=== PATIENT | male | born 1960 | race Asian ===

== ENCOUNTER 2016-10-22 21:27 | Observation (INO) | payer OTHER ==
[~2016-10-22] VITALS: Ht 167.6 cm; Wt 75.0 kg
[2016-10-22 21:39] VITALS: BP 113/73; PULSE 75; RESP 18; TEMP 98; O2SAT 95
[2016-10-22] MEDS ORDERED: MULT1TAB46 (21:39)
[2016-10-22] MEDS ORDERED: SACC1CAP3 PO (21:39)
[2016-10-22] MEDS ORDERED: CALC1TAB12 PO (21:39)
[2016-10-22] MEDS ORDERED: SODIUM CHLOR 0.9% 1000 ML INJ 1,000 ML IV ONE (22:06)
--- NOTE | 2016-10-22 22:08 | PD ---
HPI Chief Complaint: Syncope/Near-Syncope Time Seen by Provider: 22:05 Travel History International Travel<30 days: No Contact w/Intl Traveler<30days: No Traveled to known affect area: No History of Present Illness HPI 56-year-old male with no significant medical history presents to the emergency department for evaluation following a syncopal episode. Patient states that he was at a friend's house this evening and ready to leave. He was walking to leave when he began to feel tired. He states he then "passed out." He got up and passed out again. He struck his head at that time on the cabinet. At this time, patient reports left-sided head pain where he struck his head. No nausea or vomiting. No other focal deficits weakness. Patient states this did happen one time 12 years ago. He spent time in the hospital and they did not find out why it happened. Approximately 8 years ago, patient states that he developed a mild right sided facial paralysis that never completely resolved. Currently he feels tired. Denies chest pain or tightness. PFSH Past Medical History Medical History: Denies Significant Hx Diminished Hearing: No Tetanus Vaccination: Unknown Influenza Vaccination: No Social History Alcohol Use: Yes (MONTHLY) Tobacco Use: No Substance Use: No Allergies-Medications (Allergen,Severity, Reaction): Coded Allergies: nut - unspecified (Verified Allergy, Unknown, 10/22/16) Reported Meds & Prescriptions Reported Meds & Active Scripts Active Reported Probiotic (Saccharomyces Boulardii) 250 Mg Cap 250 Mg PO BID Calcium 500 +D (Calcium Carbonate-Cholecalciferol) 500-400 Mg-Unit Tab 1 Tab PO BID Multi Vitamin Daily (Multiple Vitamin) 1 Tab Tab Review of Systems Except as stated in HPI: all other systems reviewed are Neg Physical Exam Narrative GENERAL: Well-nourished male patient, in no acute distress SKIN: Focused skin assessment warm/dry. HEAD: Atraumatic. Normocephalic. EYES: Pupils equal and round. No scleral icterus. No injection or drainage. EOMI. PERRLA ENT: No nasal bleeding or discharge. Mucous membranes pink and moist. NECK: Trachea midline. No JVD. CARDIOVASCULAR: Regular rate and rhythm. No murmur appreciated. RESPIRATORY: No accessory muscle use. Clear to auscultation. Breath sounds equal bilaterally. GASTROINTESTINAL: Abdomen soft, non-tender, nondistended. Hepatic and splenic margins not palpable. MUSCULOSKELETAL: No obvious deformities. No clubbing. No cyanosis. No edema. NEUROLOGICAL: Awake and alert. No obvious cranial nerve deficits except for inability to puff cheeks on the right and very mild facial weakness on the right. This is chronic.. Motor grossly within normal limits. Normal speech. PSYCHIATRIC: Appropriate mood and affect; insight and judgment normal. Data Data Last Documented VS Vital Signs Date Time Temp Pulse Resp B/P (MAP) Pulse Ox O2 Delivery O2 Flow Rate FiO2 10/22/16 22:51 72 19 105/68 (80) 75 19 106/71 (83) 86 20 122/79 (93) 10/22/16 21:41 Room Air 10/22/16 21:39 98.0 95 Orders Orders Complete Blood Count With Diff (10/22/16 21:54) Comprehensive Metabolic Panel (10/22/16 21:54) Iv Access Insert/Monitor (10/22/16 21:54) Electrocardiogram (10/22/16 22:06) Magnesium (Mg) (10/22/16 22:06) Ckmb (Isoenzyme) Profile (10/22/16 22:06) Troponin I (10/22/16 22:06) Act Partial Throm Time (Ptt) (10/22/16 22:06) Prothrombin Time / Inr (Pt) (10/22/16 22:06) Urinalysis - C+S If Indicated (10/22/16 22:06) Chest, Single Ap (10/22/16 22:06) Ct Brain W/O Iv Contrast(Rout) (10/22/16 22:06) Ct Cerv Spine W/O Contrast (10/22/16 22:06) Ecg Monitoring (10/22/16 22:06) Oximetry (10/22/16 22:06) Sodium Chloride 0.9% Flush (Ns Flush) (10/22/16 22:15) Sodium Chlor 0.9% 1000 Ml Inj (Ns 1000 M (10/22/16 22:06) CKMB (10/22/16 21:50) CKMB% (10/22/16 21:50) Admit Order (Ed Use Only) (10/22/16 23:08) Labs Laboratory Tests Test 10/22/16 21:50 10/22/16 23:02 White Blood Count 11.3 TH/MM3 Red Blood Count 4.74 MIL/MM3 Hemoglobin 14.5 GM/DL Hematocrit 43.1 % Mean Corpuscular Volume 90.9 FL Mean Corpuscular Hemoglobin 30.5 PG Mean Corpuscular Hemoglobin Concent 33.5 % Red Cell Distribution Width 13.5 % Platelet Count 362 TH/MM3 Mean Platelet Volume 8.1 FL Neutrophils (%) (Auto) 63.5 % Lymphocytes (%) (Auto) 26.7 % Monocytes (%) (Auto) 7.5 % Eosinophils (%) (Auto) 1.7 % Basophils (%) (Auto) 0.6 % Neutrophils # (Auto) 7.1 TH/MM3 Lymphocytes # (Auto) 3.0 TH/MM3 Monocytes # (Auto) 0.8 TH/MM3 Eosinophils # (Auto) 0.2 TH/MM3 Basophils # (Auto) 0.1 TH/MM3 CBC Comment DIFF FINAL Differential Comment Prothrombin Time 9.9 SEC Prothromb Time International Ratio 0.9 RATIO Activated Partial Thromboplast Time 22.4 SEC Blood Urea Nitrogen 19 MG/DL Creatinine 1.14 MG/DL Random Glucose 101 MG/DL Total Protein 7.7 GM/DL Albumin 3.7 GM/DL Calcium Level 8.8 MG/DL Alkaline Phosphatase 63 U/L Aspartate Amino Transf (AST/SGOT) 34 U/L Alanine Aminotransferase (ALT/SGPT) 29 U/L Total Bilirubin 0.3 MG/DL Sodium Level 141 MEQ/L Potassium Level 3.8 MEQ/L Chloride Level 104 MEQ/L Carbon Dioxide Level 26.3 MEQ/L Anion Gap 11 MEQ/L Estimat Glomerular Filtration Rate 67 ML/MIN Magnesium Level 2.4 MG/DL Total Creatine Kinase 197 U/L Creatine Kinase MB 1.2 NG/ML Troponin I LESS THAN 0.02 NG/ML Urine Color YELLOW Urine Turbidity CLEAR Urine pH 5.5 Urine Specific [place] 1.022 Urine Protein TRACE mg/dL Urine Glucose (UA) NEG mg/dL Urine Ketones NEG mg/dL Urine Occult Blood NEG Urine Nitrite NEG Urine Bilirubin NEG Urine Urobilinogen LESS THAN 2.0 MG/DL Urine Leukocyte Esterase NEG Urine RBC LESS THAN 1 /hpf Urine WBC 2 /hpf Urine Hyaline Casts 5 /lpf Urine Mucus FEW /lpf Microscopic Urinalysis Comment CULT NOT INDICATED MDM Medical Decision Making Medical Screen Exam Complete: Yes Emergency Medical Condition: Yes Medical Record Reviewed: Yes Differential Diagnosis Syncope versus near-syncope versus arrhythmia versus electrolyte abnormality versus dehydration versus TIA versus CVA versus intracranial hemorrhage Narrative Course 56-year-old male presents to emergency department for evaluation following a syncopal episode. Patient appears without distress. His vital signs are stable. EKG is normal sinus rhythm without acute ST elevation or depression. CT of the brain and cervical spine are ordered. Syncopal workup is initiated. Laboratory Tests Test 10/22/16 21:50 10/22/16 23:02 Prothrombin Time 9.9 SEC Prothromb Time International Ratio 0.9 RATIO Activated Partial Thromboplast Time 22.4 SEC Magnesium Level 2.4 MG/DL Blood Urea Nitrogen 19 MG/DL Creatinine 1.14 MG/DL Random Glucose 101 MG/DL Total Protein 7.7 GM/DL Albumin 3.7 GM/DL Calcium Level 8.8 MG/DL Alkaline Phosphatase 63 U/L Aspartate Amino Transf (AST/SGOT) 34 U/L Alanine Aminotransferase (ALT/SGPT) 29 U/L Total Bilirubin 0.3 MG/DL Sodium Level 141 MEQ/L Potassium Level 3.8 MEQ/L Chloride Level 104 MEQ/L Carbon Dioxide Level 26.3 MEQ/L Creatine Kinase MB 1.2 NG/ML Urine Color YELLOW Urine Turbidity CLEAR Urine pH 5.5 Urine Specific [place] 1.022 Urine Protein TRACE mg/dL Urine Glucose (UA) NEG mg/dL Urine Ketones NEG mg/dL Urine Occult Blood NEG Urine Nitrite NEG Urine Bilirubin NEG Urine Urobilinogen LESS THAN 2.0 MG/DL Urine Leukocyte Esterase NEG Urine RBC LESS THAN 1 /hpf Urine WBC 2 /hpf Urine Hyaline Casts 5 /lpf Urine Mucus FEW /lpf Microscopic Urinalysis Comment CULT NOT INDICATED Last Impressions Head CT 10/22/162205 Signed Impressions: Service Date/Time: Saturday, October 22, 2016 22:20 - CONCLUSION: No acute intracranial abnormality is identified. Raul Martinez MD Chest X-Ray 10/22/162205 Signed Impressions: Service Date/Time: Saturday, October 22, 2016 22:24 - CONCLUSION: No acute disease. Angel Hathaway MD Cervical Spine CT 10/22/162205 Signed Impressions: Service Date/Time: Saturday, October 22, 2016 22:20 - CONCLUSION: No acute cervical spine abnormality is identified. There is degenerative disc disease at C4-C5 through C6-C7. Raul Martinez MD I have discussed the patient with my attending physician; pt will be admitted obs for syncope workup Diagnosis Primary Impression: Syncope Qualified Codes: R55 - Syncope and collapse Additional Impression: Minor head injury Qualified Codes: S00.90XA - Unspecified superficial injury of unspecified part of head, initial encounter Admitting Information Admitting Physician Requests: Observation Condition: Stable Michelle Corona Oct 22, 2016 22:08
[2016-10-22] MEDS ORDERED: SODIUM CHLORIDE 0.9% FLUSH 10 ML FLUSH IVF PRN (22:15)
[2016-10-22 22:32] LABS: AUTOMATED NEUTROPHIL # 7.1 TH/MM3 (1.8-7.7); BASOPHIL # 0.1 TH/MM3 (0-0.2); BASOPHIL % 0.6 % (0.0-2.0); EOSINOPHIL # 0.2 TH/MM3 (0-0.4); EOSINOPHIL % 1.7 % (0.0-4.0); HEMATOCRIT 43.1 % (39.0-51.0); HEMO FLAGS DIFF FINAL; LYMPH % 26.7 % (9.0-44.0); MEAN CELL VOLUME 90.9 FL (80.0-100.0); MEAN CORPUSCULAR HEMOGLOBIN 30.5 PG (27.0-34.0); MEAN CORPUSCULAR HGB CONC 33.5 % (32.0-36.0); MONO % 7.5 % (0.0-8.0); NEUT % 63.5 % (16.0-70.0); PLATELET COUNT 362 TH/MM3 (150-450); RED BLOOD COUNT 4.74 MIL/MM3 (4.50-5.90); RED CELL DISTRIBUTION WIDTH 13.5 % (11.6-17.2); WHITE BLOOD COUNT 11.3 TH/MM3 (4.0-11.0)
--- NOTE | 2016-10-22 22:48 | RADRPT ---
EXAM DATE/TIME: 10/22/2016 22:24 [facility] COMPARISON: No previous studies available for comparison. INDICATIONS : Chest pain. MEDICAL HISTORY : None. SURGICAL HISTORY : None. ENCOUNTER: Initial ACUITY: 1 day PAIN SCORE: 0/10 LOCATION: Bilateral chest FINDINGS: A single view of the chest demonstrates the lungs to be symmetrically aerated without evidence of mas s, infiltrate or effusion. The cardiomediastinal contours are unremarkable. Osseous structures are intact. CONCLUSION: No acute disease. Angel Hathaway MD on October 22, 2016 at 22:45 Board Certified Radiologist. This report was verified electronically.
[2016-10-22 22:51] VITALS: BP_SYST 105; BP_SYST 106; BP_SYST 122; BP_DIAS 68; BP_DIAS 71; BP_DIAS 79; RESP 19; RESP 20
[2016-10-22 22:53] LABS: APTT (PATIENT) 22.4 SEC (24.3-30.1); INTERNATIONAL NORMALIZED RATIO 0.9 RATIO; PROTHROMBIN TIME - PATIENT 9.9 SEC (9.8-11.6)
[2016-10-22 22:54] LABS: ALKALINE PHOSPHATASE 63 U/L (45-117); GLOMERULAR FILTRATION RATE 67 ML/MIN (>89); TOTAL BILIRUBIN ADULT 0.3 MG/DL (0.2-1.0)
--- NOTE | 2016-10-22 22:54 | RADRPT ---
EXAM DATE/TIME: 10/22/2016 22:20 [facility] COMPARISON: No previous studies available for comparison. INDICATIONS : Dizziness, fell hit left side of head. RADIATION DOSE: 32.66 CTDIvol (mGy) MEDICAL HISTORY : None SURGICAL HISTORY : None. ENCOUNTER: Initial ACUITY: 1 day PAIN SCALE: 0/10 LOCATION: Left cranial TECHNIQUE: Multiple contiguous axial images were obtained of the head. Using automated exposure control and adj ustment of the mA and/or kV according to patient size, radiation dose was kept as low as reasonably a chievable to obtain optimal diagnostic quality images. DICOM format image data is available electro nically for review and comparison. FINDINGS: CEREBRUM: The ventricles are normal. No evidence of midline shift, mass lesion, hemorrhage or acute infarction. No extra-axial fluid collections are seen. POSTERIOR FOSSA: The cerebellum and brainstem are intact. The 4th ventricle is midline. The cerebellopontine angle i s unremarkable. EXTRACRANIAL: There is a small mucous retention cyst in the right maxillary sinus. SKULL: The calvaria is intact. No evidence of skull fracture. CONCLUSION: No acute intracranial abnormality is identified. Raul Martinez MD on October 22, 2016 at 22:51 Board Certified Radiologist. This report was verified electronically.
[2016-10-22 23:01] LABS: ALT (GPT) 29 U/L (12-78); ANION GAP 11 MEQ/L (5-15); AST (GOT) 34 U/L (15-37); BICARBONATE 26.3 MEQ/L (21.0-32.0); BLOOD UREA NITROGEN 19 MG/DL (7-18); CHLORIDE 104 MEQ/L (98-107); SODIUM (NA) 141 MEQ/L (136-145)
[2016-10-22 23:02] LABS: POTASSIUM 3.8 MEQ/L (3.5-5.1)
--- NOTE | 2016-10-22 23:02 | RADRPT ---
EXAM DATE/TIME: 10/22/2016 22:20 [facility] COMPARISON: No previous studies available for comparison. INDICATIONS : Dizziness, fell hit left side of head. RADIATION DOSE: 32.66 CTDIvol (mGy) MEDICAL HISTORY : None SURGICAL HISTORY : None. ENCOUNTER: Initial ACUITY: 1 day PAIN SCALE: 5/10 LOCATION: neck TECHNIQUE: Volumetric scanning of the cervical spine was performed. Multiplanar reconstructions in the sagittal, coronal and oblique axial planes were performed. Using automated exposure control and adjustment o f the mA and/or kV according to patient size, radiation dose was kept as low as reasonably achievable to obtain optimal diagnostic quality images. DICOM format image data is available electronically f or review and comparison. FINDINGS: There is normal sagittal spine alignment of the cervical spine. No anterolisthesis or retrolisthesis is present. The atlantoaxial relationship is within normal limits. There is no prevertebral soft tiss ue swelling present. No fracture or dislocation is identified. There is degenerative disc disease at C4-C5 through C6-C7. The visualized portions of the posterior fossa, paraspinous soft tissues, and upper lung zones demons trate no acute abnormality. CONCLUSION: No acute cervical spine abnormality is identified. There is degenerative disc disease at C4-C5 throug h C6-C7. Raul Martinez MD on October 22, 2016 at 22:58 Board Certified Radiologist. This report was verified electronically.
[2016-10-22 23:05] LABS: CREATINE KINASE 197 U/L (39-308)
[2016-10-22 23:06] LABS: MAGNESIUM 2.4 MG/DL (1.5-2.5)
[2016-10-22 23:18] LABS: CKMB 1.2 NG/ML (0.5-3.6)
[2016-10-22 23:23] LABS: BLOOD, URINE NEG (NEG); COMMENT (UR) CULT NOT INDICATED; CULTURE IF INDICATED CULT NOT INDICATED; GLUCOSE,URINE NEG (NEG); HYALINE CAST, URINE 5 /lpf (RARE); KETONE, URINE NEG (NEG); MUCUS URINE FEW /lpf (OCC); NITRITE,URINE NEG (NEG); PH, URINE 5.5 (5.0-8.5); URINE COLOR YELLOW (YELLW/STRAW)
[2016-10-22 23:45] VITALS: BP 106/72; PULSE 78; RESP 18; O2SAT 98
[2016-10-23] MEDS ORDERED: NALOXONE HCL 0.4 MG/ML AMP IV PRN
[2016-10-23] MEDS ORDERED: SODIUM CHLORIDE 0.9% FLUSH 10 ML FLUSH IV FLUSH PRN
[2016-10-23 01:56] VITALS: BP 98/62; PULSE 70; RESP 14; TEMP 97.9; O2SAT 96
[2016-10-23 03:51] VITALS: PULSE 67
[2016-10-23 04:00] VITALS: PULSE 68
[2016-10-23 05:10] LABS: BASOPHIL % 0.5 % (0.0-2.0); EOSINOPHIL # 0.1 TH/MM3 (0-0.4); EOSINOPHIL % 0.9 % (0.0-4.0); HEMO FLAGS DIFF FINAL; LYMPHOCYTE # 1.8 TH/MM3 (1.0-4.8); MEAN CELL VOLUME 92.7 FL (80.0-100.0); MEAN CORPUSCULAR HEMOGLOBIN 31.3 PG (27.0-34.0); MEAN CORPUSCULAR HGB CONC 33.8 % (32.0-36.0); MONO % 6.1 % (0.0-8.0); NEUT % 75.5 % (16.0-70.0); PLATELET COUNT 314 TH/MM3 (150-450); RED BLOOD COUNT 4.53 MIL/MM3 (4.50-5.90); RED CELL DISTRIBUTION WIDTH 13.7 % (11.6-17.2); WHITE BLOOD COUNT 10.6 TH/MM3 (4.0-11.0)
[2016-10-23 05:29] VITALS: BP 98/65; PULSE 67; RESP 16; TEMP 97.5; O2SAT 98
[2016-10-23 05:31] LABS: ANION GAP 7 MEQ/L (5-15); BLOOD UREA NITROGEN 16 MG/DL (7-18); CHLORIDE 109 MEQ/L (98-107); GLOMERULAR FILTRATION RATE 83 ML/MIN (>89); POTASSIUM 3.9 MEQ/L (3.5-5.1); SODIUM (NA) 139 MEQ/L (136-145)
[2016-10-23 05:35] LABS: CREATINE KINASE 134 U/L (39-308)
[2016-10-23 07:40] VITALS: BP 105/66; PULSE 71; RESP 18; TEMP 97.5; O2SAT 98
[2016-10-23] MEDS ORDERED: SODIUM CHLORIDE 0.9% FLUSH 10 ML FLUSH IV FLUSH SCH (09:00)
[2016-10-23 11:14] VITALS: BP 108/71; PULSE 69; RESP 18; TEMP 97.7; O2SAT 96
[2016-10-23 12:11] LABS: CREATINE KINASE 122 U/L (39-308)
--- NOTE | 2016-10-23 12:15 | RADRPT ---
EXAM DATE/TIME: 10/23/2016 09:50 [facility] COMPARISON: No previous studies available for comparison. INDICATIONS : Syncope. MEDICAL HISTORY : Syncope. SURGICAL HISTORY : Back surgery. ENCOUNTER: Initial ACUITY: 1 day PAIN SCORE: 0/10 LOCATION: Bilateral neck PEAK SYSTOLIC VELOCITIES (cm/sec): ICA/CCA RATIO: Right: 1.0 Left: 1.1 ICA: Right: 82 Left: 107 CCA: Right: 82 Left: 98 ECA: Right: 116 Left: 87 VERTEBRAL: Right: 36 antegrade Left: 44 antegrade Elevated flow velocities and ICA/CCA ratios have been found to correlate with increased degrees of vessel stenosis, calculated as percentage of diameter relative to a normal segment of distal ICA/CCA FINDINGS: RIGHT CAROTID: No significant stenosis is visualized. The waveforms are within normal limits. LEFT CAROTID: No significant stenosis is visualized. The waveforms are within normal limits. VERTEBRAL ARTERIES: Antegrade flow is seen in both vertebral arteries. MISCELLANEOUS: None. CONCLUSION: No evidence for hemodynamically significant stenosis. Kumar Najera MD on October 23, 2016 at 12:12 Board Certified Radiologist. This report was verified electronically.
--- NOTE | 2016-10-23 13:47 | HHI.HP ---
[facility] Service [facility] Primary Care Physician No Primary Care Physician Admission Diagnosis syncope Diagnoses: Chief Complaint: Syncope Travel History International Travel<30 Days: No Contact w/Intl Traveler <30 Da: No Traveled to Known Affected Are: No History of Present Illness Written by Joni Walker, acting as scribe for Dr. Stewart on 10/23/16 at 13:47. This note was transcribed by [email or web address] Walker PA-C. I, Dr. Earnest Stewart personally performed the history, physical exam, and medical decision making; and confirmed the accuracy of the information in the transcribed note. Authenticated by Dr. Earnest Stewart on 10/23/16 at 14:00. 56-year-old male with no significant past medical history who presented after syncopal episode. The patient states that after dinner he was outside for a while. He did have 1 alcoholic beverage. He states that he began to feel little woozy, so he drove home. He felt like he was going to fall, but can't himself, stood up and then lost consciousness. He did hit his head. He did regain consciousness shortly thereafter. He denies having any lightheadedness or dizziness. He has a similar episode about 12 years ago. He denies any chest pain, shortness breath, nausea, vomiting, sweats, diarrhea. He's been ambulating here with no issues. He has no acute complaints today and feels well. He denies any history of heart disease. He did have borderline high blood pressure that he managed with weight loss. The patient's father does have a history of unknown arrhythmia. Review of Systems Except as stated in HPI: all other systems reviewed are Neg Past Family Social History Past Medical History History of Bravo's palsy Past Surgical History Back surgery 25 years ago Reported Medications Reported Probiotic (Saccharomyces Boulardii) 250 Mg Cap 250 Mg PO BID Calcium 500 +D (Calcium Carbonate-Cholecalciferol) 500-400 Mg-Unit Tab 1 Tab PO BID Multi Vitamin Daily (Multiple Vitamin) 1 Tab Tab Allergies: Coded Allergies: nut - unspecified (Verified Allergy, Unknown, 10/22/16) Active Ordered Medications Current Medications Medications (Trade) Dose Ordered Sig/Mary Route Start Time Stop Time Status Last Admin (NS Flush) 2 ml UNSCH PRN IV FLUSH 10/23/16 00:00 (NS Flush) 2 ml BID IV FLUSH 10/23/16 09:00 10/23/16 09:22 (Narcan Inj) 0.4 mg UNSCH PRN IV 10/23/16 00:00 Family History Father had arrhythmia, heart bypass, some type of cardiac implant History of cancer in the patient's mother side Social History Occasional alcohol use Physical Exam Vital Signs Vital Signs Date Time Temp Pulse Resp B/P (MAP) Pulse Ox O2 Delivery O2 Flow Rate FiO2 10/23/16 11:14 97.7 69 18 108/71 (83) 96 10/23/16 07:40 97.5 71 18 105/66 (79) 98 10/23/16 05:29 97.5 67 16 98/65 (76) 98 10/23/16 04:00 68 10/23/16 03:51 67 10/23/16 01:56 97.9 70 14 98/62 (74) 96 10/23/16 01:23 10/22/16 23:45 78 18 106/72 (83) 98 Room Air 10/22/16 22:51 72 19 105/68 (80) 75 19 106/71 (83) 86 20 122/79 (93) 10/22/16 21:41 Room Air 10/22/16 21:39 98.0 75 18 113/73 (86) 95 Physical Exam GENERAL: Well-developed well-nourished. In no acute distress. SKIN: Warm and dry. No lesions noted. HEENT: Normocephalic. Pupils equal and round. Mucous membranes pink and moist. CARDIOVASCULAR: Regular rate and rhythm. No murmur appreciated. RESPIRATORY: No accessory muscle use. Clear to auscultation. Breath sounds equal bilaterally. GASTROINTESTINAL: Abdomen soft, non-tender, nondistended. Bowel sounds x4. MUSCULOSKELETAL: No obvious deformities. No clubbing or cyanosis. No edema. NEUROLOGICAL: Awake and alert. Right lower facial drooping, chronic. Moves upper and lower extremities spontaneously. Normal speech. PSYCHIATRIC: Appropriate mood and affect; insight and judgment normal. Laboratory Laboratory Tests Test 10/22/16 21:50 10/22/16 23:02 10/23/16 04:55 10/23/16 11:30 White Blood Count 11.3 10.6 Red Blood Count 4.74 4.53 Hemoglobin 14.5 14.2 Hematocrit 43.1 42.0 Mean Corpuscular Volume 90.9 92.7 Mean Corpuscular Hemoglobin 30.5 31.3 Mean Corpuscular Hemoglobin Concent 33.5 33.8 Red Cell Distribution Width 13.5 13.7 Platelet Count 362 314 Mean Platelet Volume 8.1 7.7 Neutrophils (%) (Auto) 63.5 75.5 Lymphocytes (%) (Auto) 26.7 17.0 Monocytes (%) (Auto) 7.5 6.1 Eosinophils (%) (Auto) 1.7 0.9 Basophils (%) (Auto) 0.6 0.5 Neutrophils # (Auto) 7.1 8.0 Lymphocytes # (Auto) 3.0 1.8 Monocytes # (Auto) 0.8 0.6 Eosinophils # (Auto) 0.2 0.1 Basophils # (Auto) 0.1 0.0 CBC Comment DIFF FINAL DIFF FINAL Differential Comment Prothrombin Time 9.9 Prothromb Time International Ratio 0.9 Activated Partial Thromboplast Time 22.4 Blood Urea Nitrogen 19 16 Creatinine 1.14 0.94 Random Glucose 101 137 Total Protein 7.7 Albumin 3.7 Calcium Level 8.8 8.4 Alkaline Phosphatase 63 Aspartate Amino Transf (AST/SGOT) 34 Alanine Aminotransferase (ALT/SGPT) 29 Total Bilirubin 0.3 Sodium Level 141 139 Potassium Level 3.8 3.9 Chloride Level 104 109 Carbon Dioxide Level 26.3 23.0 Anion Gap 11 7 Estimat Glomerular Filtration Rate 67 83 Magnesium Level 2.4 Total Creatine Kinase 197 134 122 Creatine Kinase MB 1.2 Troponin I LESS THAN 0.02 LESS THAN 0.02 LESS THAN 0.02 Urine Color YELLOW Urine Turbidity CLEAR Urine pH 5.5 Urine Specific [place] 1.022 Urine Protein TRACE Urine Glucose (UA) NEG Urine Ketones NEG Urine Occult Blood NEG Urine Nitrite NEG Urine Bilirubin NEG Urine Urobilinogen LESS THAN 2.0 Urine Leukocyte Esterase NEG Urine RBC LESS THAN 1 Urine WBC 2 Urine Hyaline Casts 5 Urine Mucus FEW Microscopic Urinalysis Comment CULT NOT INDICATED Result Diagram: 10/23/1645410/23/16454 Imaging Last Impressions Carotid Artery Ultrasound 10/23/16 0000 Signed Impressions: Service Date/Time: Sunday, October 23, 2016 09:50 - CONCLUSION: No evidence for hemodynamically significant stenosis. Kumar Najera MD Head CT 10/22/162205 Signed Impressions: Service Date/Time: Saturday, October 22, 2016 22:20 - CONCLUSION: No acute intracranial abnormality is identified. Raul Martinez MD Chest X-Ray 10/22/162205 Signed Impressions: Service Date/Time: Saturday, October 22, 2016 22:24 - CONCLUSION: No acute disease. Angel Hathaway MD Cervical Spine CT 10/22/162205 Signed Impressions: Service Date/Time: Saturday, October 22, 2016 22:20 - CONCLUSION: No acute cervical spine abnormality is identified. There is degenerative disc disease at C4-C5 through C6-C7. MD Boris Villanueva VTE Risk Assessment Boris VTE Risk Assessment: No/Low Risk (score <= 1) Caprini Risk Assessment Model Point Value = 1 Point Value = 2 Point Value = 3 Point Value = 5 Age 41-60 Minor surgery BMI > 25 kg/m2 Swollen legs Varicose veins or History of unexplained or recurrent spontaneous Oral contraceptives or hormone replacement Sepsis (< 1 month) Serious lung disease, including pneumonia (< 1 month) Abnormal pulmonary function Acute myocardial infarction Congestive heart failure (< 1 month) History of inflammatory bowel disease Medical patient at bed rest Age 61-74 Arthroscopic surgery Major open surgery (> 45 min) Laparoscopic surgery (> 45 min) Malignancy Confined to bed (> 72 hours) Immobilizing plaster cast Central venous access Age >= 75 History of VTE Family history of VTE Factor V Leiden Prothrombin [id number] Lupus anticoagulant Anticardiolipin antibodies Elevated serum homocysteine Heparin-induced thrombocytopenia Other congenital or acquired thrombophilia Stroke (< 1 month) Elective arthroplasty Hip, pelvis, or leg fracture Acute spinal cord injury (< 1 month) Prophylaxis Regimen Total Risk Factor Score Risk Level Prophylaxis Regimen 0-1 Low Early ambulation 2 Moderate Order ONE of the following: *Sequential Compression Device (SCD) *Heparin 5000 units SQ BID 3-4 Higher Order ONE of the following medications: *Heparin 5000 units SQ TID *Enoxaparin/Lovenox 40 mg SQ daily (WT < 150 kg, CrCl > 30 mL/min) *Enoxaparin/Lovenox 30 mg SQ daily (WT < 150 kg, CrCl > 10-29 mL/min) *Enoxaparin/Lovenox 30 mg SQ BID (WT < 150 kg, CrCl > 30 mL/min) AND/OR *Sequential Compression Device (SCD) 5 or more Highest Order ONE of the following medications: *Heparin 5000 units SQ TID (Preferred with Epidurals) *Enoxaparin/Lovenox 40 mg SQ daily (WT < 150 kg, CrCl > 30 mL/min) *Enoxaparin/Lovenox 30 mg SQ daily (WT < 150 kg, CrCl > 10-29 mL/min) *Enoxaparin/Lovenox 30 mg SQ BID (WT < 150 kg, CrCl > 30 mL/min) AND *Sequential Compression Device (SCD) Assessment and Plan Assessment and Plan 56-year-old male with no significant past medical history who presented after syncopal episode Syncope: Possibly vasovagal exacerbated by dehydration. Rule out underlying arrhythmia. Reviewed: Labs for signs of mild dehydration. EKGs with NSR, no significant arrhythmias. Cardiac enzymes negative 3. Head CT with no acute intracranial abnormality. Carotid ultrasound with no significant stenosis. Non-orthostatic. -Repeat labs show improvement in dehydration after IVF. -We will place Holter monitor and recommend patient follow up with PCP and cardiology as outpatient. -Telemetry monitoring Head trauma: Mild. Secondary to fall from syncope. Head CT as above. C-spine CT with no acute abnormalities noted, chronic changes. PT recommends no restrictions. -Stable. Supportive care. Disposition: Offered the patient additional night of observation and telemetry monitoring, and patient wishes to be discharged home today. Place Holter monitor and follow-up with PCP and cardiology as outpatient. Discharge home today. Discharge patient to home Condition on discharge: Improved Regular Diet as tolerated Ad Dasia activity Rx written: - No new prescription. Holter monitor arranged. Follow-up with primary care physician within 1-2 weeks and Cardiology ([facility]) within 1-2 weeks. Discussed Condition With Patient with at bedside Joni Walker Oct 23, 2016 13:47 Mirian Stewart DO Oct 24, 2016 00:29
--- NOTE | 2016-10-23 19:25 | EKG ---
Date Performed: 10/23/2016 Time Performed: 11:08:18 PTAGE: 56 years EKG: Sinus rhythm NORMAL ECG PREVIOUS TRACING : 10/23/2016 05.03 Compared to prior tracing no significant change DOCTOR: Roosevelt Crnoin Interpretating Date/Time 10/23/2016 19:24:34
--- NOTE | 2016-10-23 19:36 | EKG ---
Date Performed: 10/23/2016 Time Performed: 05:03:11 PTAGE: 56 years EKG: Sinus rhythm NORMAL ECG PREVIOUS TRACING : 10/22/2016 22.01 Compared to prior tracing no significant change DOCTOR: Roosevelt Cronin Interpretating Date/Time 10/23/2016 19:35:35
--- NOTE | 2016-10-23 19:44 | EKG ---
Date Performed: 10/22/2016 Time Performed: 22:01:12 PTAGE: 56 years EKG: Sinus rhythm NORMAL ECG NO PREVIOUS TRACING DOCTOR: Roosevelt Cronin Interpretating Date/Time 10/23/2016 19:43:03
--- NOTE | 2016-10-26 19:02 | HM ---
Date Performed: 10/23/2016 Time Performed: 14:26:00 HOOKUP DATE: 10/23/16 02:26:00 PM Wed ANALYSIS START TIME: 10/23/2016 2:31:00 PM ANALYSIS END TIME: 10/24/2016 2:35:00 PM PATIENT AGE: 56 PATIENT HEIGHT PATIENT WEIGHT DRUG LIST PATIENT DIAGNOSIS: SYNCOPE TEST NARRATIVE: The patient's average heart rate was 74 BPM. Heart rates greater than 120 B PM were noted < 1% of the time. No episodes of bradycardia were noted. No pauses exceeding 2.0 s econds were noted. 1 ventricular ectopics, which represented < 1% of the total beat count, were n oted. The highest ventricular ectopic frequency occurred from 08:00 AM to 09:00 AM Pratima. During this time 1 VE(s) occurred. Ventricular ectopics were observed as 1 isolated beat(s) only. No couplets or runs were noted. 8 supraventricular ectopics, which represented < 1% of the total beat count, were noted. The highest supraventricular ectopic frequency occurred from 05:00 PM to 06:00 PM Wed. During this time 6 SVE(s) occurred. No episodes of ST depression (defined as -1.0 mm or more) wer e noted in channel 1. No episodes of ST depression (defined as -1.0 mm or more) were noted in channe l 2. No episodes of ST depression (defined as -1.0 mm or more) were noted in channel 3. NO DIARY ENT JENNIFER IN THE PATIENT DIARY. TEST INTERPRETATION: Sinus rhythm RARE PACS 2 BRIEF EPISODES OF NONSUSTAINED ATRIAL TACHYCARDIA Signed by : Roosevelt Cronin
== END 2016-10-23 15:51 | disposition home or self-care (01) ==
LOC: NEPE 21:27 → NEDA 23:10 → NEPFCDU 10-23 01:30
PROVIDERS: ADMIT Hospitalist; ATTEND Hospitalist
DX: R55 Syncope and collapse (principal); S00.90XA Unspecified superficial injury of unspecified part of head, initial encounter; W19.XXXA Unspecified fall, initial encounter
CPT/HCPCS: 70450; 71010; 72125; 80048; 80053; 81001; 82550; 82552; 83735; 84484; 85025; 85610; 85730; 93005; 93225; 93226; 93880; 96360; 97161; 99285; G0378; G8987; G8988; J7030